=== PATIENT | male | born 1960 | race Caucasian/White ===

== ENCOUNTER 2024-01-10 11:31 | Outpatient (CLI) | payer BC, SELFPAY ==
--- NOTE | ~2024-01-10 | PE_ITS ---
EXAMINATION: PET_PETPSMAST_PT DATE: 01/10/2024 14:49 INDICATION: Malignant neoplasm of prostate. TECHNIQUE: 4.995 mCi of piflufolastat F-18 was administered intravenously. Low dose computed tomograp hy (CT) images were acquired from the base of the brain to the proximal thighs for attenuation correc tion and anatomic localization. Automated exposure control was employed. Dose-length product (DLP) wa s 1323 mGy-cm. Positron emission tomography (PET) images were acquired in the same distribution. COMPARISON: None FINDINGS: Head/neck: There are no pathologically enlarged lymph nodes. There is a mucous retention cyst in left maxillary sinus. Chest: The lungs demonstrate mild atelectasis. Calcified left hilar lymph nodes are consistent with o ld granulomatous disease. No pleural effusion. The heart size is normal. No pericardial effusion. Abdomen/pelvis/proximal thighs: The liver, gallbladder, spleen, pancreas, adrenal glands, and kidneys are normal. There is no urolithiasis. The prostate is moderately enlarged. There is increased activi ty in the prostate bilaterally with maximum SUV of 7.0. There are no dilated loops of bowel. The appe ndix is normal. There are no pathologically enlarged lymph nodes. There is no free intraperitoneal fl uid. There are bilateral inguinal hernias containing fat. There is no osseous metastatic disease. IMPRESSION: 1. Moderately enlarged prostate with increased activity bilaterally, consistent with primary malignan cy. No evidence of metastatic disease. Reviewed, dictated and finalized at location A. IMPRESSION: 1. Moderately enlarged prostate with increased activity bilaterally, consistent with primary malignancy. No evidence of metastatic disease.
== END 2024-01-10 11:32 | disposition home or self-care (01) ==
LOC: ANHIMG 11:32
PROVIDERS: Visit Provider Urology
DX: C61 Malignant neoplasm of prostate (principal); N40.0 Benign prostatic hyperplasia without lower urinary tract symptoms
CPT/HCPCS: 78815; A9596

== ENCOUNTER 2024-01-27 11:41 | Outpatient (CLI) | payer BC, SELFPAY ==
[2024-01-27 13:44] LABS: Basophils Percent Auto 0.1 % (0.2-1.2); Eosinophils Absolute Auto 0.2 K/mm3 (0-0.3); Eosinophils Percent Auto 3.3 % (0-4.4); Hematocrit 46.5 % (42.0-52.0); Hemoglobin 15.4 g/dL (14.0-18.0); Immature Granulocyte Absolute 0.04 K/mm3 (0.00-0.031); Immature Granulocyte Percent A 0.6 % (0-0.5); Lymphocytes Absolute Auto 1.57 K/mm3 (0.9-3.2); Lymphocytes Percent Auto 22.6 % (18.3-44.2); Mean Corpuscular HGB Conc 33.1 g/dl (32-36); Mean Corpuscular Hemoglobin 30.8 pg (26-34); Mean Platelet Volume 10.4 fl (7.4-10.4); Monocytes Absolute Auto 0.6 K/mm3 (0.1-0.6); Neutrophils Absolute Auto 4.6 K/mm3 (1.3-6.7); Neutrophils Percent Auto 65.4 % (45.5-73.1); Platelet Count Result 238 k/mm3 (150-375); Red Cell Distribution Width 12.1 % (11.5-14.5)
[2024-01-27 13:53] LABS: INR 1.1; Prothrombin Time 14.6 Seconds (11.1-14.7)
[2024-01-27 13:54] LABS: Partial Thromboplastin Time 35.3 Seconds (22.3-36.8)
[2024-01-27 13:59] LABS: Alanine Aminotransferase 25 U/L (6-50); Albumin Level 4.2 g/dL (3.5-5.1); Alkaline Phosphatase 88 U/L (38-126); Anion Gap 2 mmol/L (4-12); Aspartate Amino Transferase 26 U/L (17-59); Bilirubin,Total 0.5 mg/dL (0.2-1.3); Blood Urea Nitrogen 14 mg/dL (9-20); Calcium 8.9 mg/dL (8.4-10.2); Carbon Dioxide 30 mmol/L (22-30); Chloride 108 mmol/L (98-107); Estimated Glomerular Filt Rate > 60; Glucose 86 mg/dL (65-110); Sodium 140 mmol/L (137-145)
== END 2024-01-27 11:42 | disposition home or self-care (01) ==
PROVIDERS: PCP Family Medicine; Visit Provider Urology
DX: Z01.818 Encounter for other preprocedural examination (principal); C61 Malignant neoplasm of prostate
CPT/HCPCS: 36415; 80053; 85025; 85610; 85730; 86850; 86900; 86901; 87086

== ENCOUNTER 2024-02-04 00:11 | Day surgery (SDC) | payer BC, SELFPAY ==
--- NOTE | 2024-01-27 11:28 | PC.NURSE ---
PRE-OP INSTRUCTIONS PLEASE READ CAREFULLY Report to the Outpatient Waiting Room, entrance under the green pavilion located off [facility], at time _0600_ on date _02/04/24_. Planned Procedure Time: _0730_. PACK A SMALL OVERNIGHT BAG AND LEAVE IN THE CAR Time changes happen often and if your time is changed the preop area will call you the afternoon before. - You and your visitor will be asked to self-screen and do not enter if you have any COVID symptoms. - A mask is optional within the hospital at this time. -VISITING HOURS 8AM-8PM Patients may have clear liquids (water, carbonated beverages, clear teas, apple juice) until 3 hours prior to surgery (0430 AM) with a maximum of 20 ounces. - No food from midnight until time of surgery Take the following medications with a SIP of water the morning of surgery: _AMIODARONE, CARVEDILOL_ DO NOT STOP ANY OF YOUR OTHER PRESCRIPTION MEDICATIONS PRIOR TO SURGERY ?EXCEPT THE FOLLOWING Medications to discontinue - _ELIQUIS INSTRUCTED BY DR. MERRILL-2 DAYS PRIOR TO SURGERY (PER PATIENT), Date to take last dose 01/15/22_ Medications to discontinue ANESTHESIA - _VITAMINS/SUPPLEMENTS 3 DAYS PRIOR TO SURGERY, Date to take last dose 01/31/24_ Please no make-up, nail yakut, hairspray, perfume, deodorant, or body powder the day of surgery. No jewelry (including any body piercings) or valuables the day of surgery, leave them at home. Please take a shower or bath the night before, or the morning of, surgery with an antibacterial soap. Wear comfortable, loose fitting clothing. - Jewelry must be removed prior to entering the operating room. Rings and piercings that are not removed may be cut off. - The hospital will not accept responsibility for valuables. - Please leave all valuables, including medications, at home the day of surgery. If you are going home after surgery, a licensed delivery motorcycle driver must drive you home. - NO public transportation without another adult if you receive anesthesia. - We recommend that an adult stay with you for 24 hours following discharge. - We also recommend that you do not drive, make important decision, drink alcoholic beverages, or take any drugs that were not prescribed by your health care provider for at least 24 hours after your discharge time. Follow any additional instructions given to you from your surgeon. If you or anyone in your household have experienced Covid symptoms in the past week, please notify your surgeon or the nurse liaison at the phone number below for possible testing. Instructions given to _PATIENT & SIGNIFICANT OTHER (ADRIAN)_and asked if any additional questions and then verbalized understanding. Patient advised to call surgeon office or pre surgery nurse liaison [phone] if any additional questions.
[2024-01-27 12:09] VITALS: BP 116/76; PULSE 76; RESP 20; TEMP 36.4; O2SAT 98; BMI 32.8
[2024-02-04] VITALS (14 sets, daily range): BP systolic 93–141; BP diastolic 52–93; PULSE 65–81; RESP 14–18; TEMP 36.2–36.9; O2SAT 90–98
[2024-02-04] MEDS: LACTATED RINGERS 1,000 ML 30 ML IV CONT ×2 (07:00→12:56)
--- NOTE | 2024-02-04 07:16 | WPDHPUPDATE1 ---
History and Physical Update Update Date/Time: 02/04/24 07:16 History and Physical has been reviewed, including an updated exam of the patient. There are NO changes in the patient's condition. Risks, benefits, and alternatives have been discussed and questions answered. Patient agrees to proceed with procedure. Proceed with robotic assist nerve sparing prostatectomy with possible plnd
--- NOTE | 2024-02-04 07:17 | PM.IMHP ---
H&P: HPI History of Present Illness Date/Time: 02/04/24 07:17 Chief Complaint: prostate cancer Narrative: 63 yr old with adenocarcinoma of prostate. Here for robotic assist nerve sparing prostatectomy with possible plnd. Review of Systems Review of Systems: All systems reviewed & are unremarkable except as noted in HPI and below PMFSH Social History Social History Smoking status: Never smoker Second hand tobacco smoke exposure: No Alcohol intake: current Drinks per week: 6 Substance use: never Substance use type: does not use Living arrangements: other Additional living arrangements comments: LIVES WITH [facility] Spiritual [facility] concerns: No Meds Home Medications and Allergies Home Medications Medication Instructions Recorded Confirmed Type amiodarone 200 mg tablet 200 mg DAILY 01/27/24 01/27/24 History apixaban 5 mg tablet (Eliquis) 5 mg BID 01/27/24 01/27/24 History carvedilol 6.25 mg tablet 6.25 mg BID 01/27/24 01/27/24 History magnesium 200 mg tablet 400 mg PO DAILY 01/27/24 01/27/24 History multivitamin 1 tablet PO DAILY 01/27/24 01/27/24 History spironolactone 25 mg tablet 12.5 mg PO DAILY 01/27/24 01/27/24 History Allergies Allergy/AdvReac Type Severity Reaction Status Date / Time POWDER FROM LATEX GLOVES AdvReac Rash Uncoded 01/27/24 12:03 Exam Const: General: cooperative and comfortable Resp: Effort & Inspection: normal respiratory effort Cardio: Rate: regular rate Rhythm: regular rhythm GI: GI Palp: Yes Soft to palpation Assessment and Plan Assessment and plan (1) Adenocarcinoma of prostate: Code(s): C61 - Malignant neoplasm of prostate Status: Acute Assessment and Plan: Proceed with robotic assist nerve sparing prostatectomy with possible plnd. He is aware that may need to take left NVB due to appearance on MRI and possible involvement. Also aware of possibility of adjuvant xrt if margins are positive.
--- NOTE | 2024-02-04 07:18 | WPDANESEPPF ---
Anes - Initial Pre Proc Eval Procedure: Operation Date: 02/04/24 07:30 Proposed Procedures p Robotic Nerve Sparing Prostatectomy with Pelvic Lymph Node Dissection - Tacho Willis MD Date/Time: 02/04/24 07:18 Surgeon: Tacho Willis MD Pre Op Diagnosis: Prostate Ca Patient Data Age: 63 Gender: M Height: 1.93 m Weight: 122.2 kg Last Vital Signs Temp 97.6 F 01/27/24 12:09 Pulse 76 01/27/24 12:09 Resp 20 01/27/24 12:09 BP 116/76 01/27/24 12:09 Pulse Ox 98 01/27/24 12:09 O2 Del Method Room Air 01/27/24 12:09 Allergies Allergy/AdvReac Type Severity Reaction Status Date / Time POWDER FROM LATEX GLOVES AdvReac Rash Uncoded 01/27/24 12:03 Home Medications Medication Instructions Recorded Confirmed Type amiodarone 200 mg tablet 200 mg DAILY 01/27/24 01/27/24 History apixaban 5 mg tablet (Eliquis) 5 mg BID 01/27/24 01/27/24 History carvedilol 6.25 mg tablet 6.25 mg BID 01/27/24 01/27/24 History magnesium 200 mg tablet 400 mg PO DAILY 01/27/24 01/27/24 History multivitamin 1 tablet PO DAILY 01/27/24 01/27/24 History spironolactone 25 mg tablet 12.5 mg PO DAILY 01/27/24 01/27/24 History Patient hx anesthesia problems: none Family hx anesthesia problems: none Results Review: All pre-operative results and documents have been reviewed as part of the pre-operative evaluation. [facility] Social History Social History Smoking status: Never smoker Second hand tobacco smoke exposure: No Alcohol intake: current Drinks per week: 6 Substance use: never Substance use type: does not use Living arrangements: other Additional living arrangements comments: LIVES WITH [facility] OTHER [facility] Spiritual care concerns: No Anes - Eval Final PreProcedure Day of Procedure 02/04/24 07:18 Patient weight: obese Heart: regular rate and rhythm Lungs: clear to auscultation Airway: Mallampati scale class II Neurological: alert and oriented Last oral intake: >/= 8 hours ASA classification: III Emergent: no Anesthetic plan: proceed Anesthesia type and monitoring: general ETT and standard monitoring Results Review: All pre-operative results and documents have been reviewed as part of the pre-operative evaluation. ECHO reviewed 2021 LVEF 50%. Stress test 2020 w no ischemia. Pt has KERRIE on CPAP. Informed Consent: The patient's anesthetic plan and its attendant risks and benefits were discussed with the patient/family/POA. Questions were solicited and answers provided to the satisfaction of the patient/family/POA.
[2024-02-04] MEDS: ceFAZolin 3 GM/D5W 100 ML 100 ML IVPB (07:50)
[2024-02-04] MEDS: BUPivacaine HCL 0.5% 10 ML AMP 30 ML INFILTRATE (08:28)
[2024-02-04] MEDS: ceFAZolin SODIUM 1 GM VIAL IV PUSH (11:24)
--- NOTE | 2024-02-04 12:30 | W.PM.PROC2 ---
Procedure Note - Detailed Date of Procedure 02/04/24 Pre-op Diagnosis Prostate Ca Post-op Diagnosis Same Procedure Performed Robotic assisted nerve-sparing prostatectomy with left pelvic lymphadenectomy Surgeon Tacho Willis MD Anesthesia General Description of Procedure Patient was taken to the operative suite correctly identified. Once anesthesia was obtained was placed in low-lying dorsal lithotomy position prepped and draped usual sterile fashion. Eighteen Latvian Tee with 20 cc was placed in the bladder. Supraumbilical incision was made carried down to the rectus fascia. Veress needle was inserted and the abdomen insufflated to 15 mmHg pressure. Camera port was placed under direct vision. Patient had some adhesions along the left colon area which were taken down. Posterior approach was then performed. Seminal vesicles were dissected out in their entirety vas were transected. Plane between the prostate and rectum was developed. Bladder was then taken down the space of Retzius was developed bilaterally. Puboprostatic were taken down. Dorsal venous complex was isolated and suture ligated using an 0 Vicryl in secured to the pubic bone. Anterior bladder neck was then opened. Posterior bladder neck was also incised. It was somewhat of a larger bladder neck and thus it was reconstructed using 3-0 Vicryl in interrupted fashion at the 3 and 6:00 a.m. positions. Posterior fascia was incised to expose the seminal vesicles. A wider resection was made along the left neurovascular bundle. It was noted that there was an incision into the prostate. Again a wider resection was done on the left side. The right side pedicles were also taken and clipped. Nerve-sparing was performed on the right side. Dorsal venous complex was transected as was the urethra. Prostate was placed in an Endo-Catch bag. Left pelvic lymph node dissection was then performed using boundaries of Jasen's ligament, bifurcation of the vessels, obturator nerve, and external iliac vein. Clips were placed proximally and distally on the packets. Specimen was also placed in an Endo-Catch bag. A Kirt stitch was then performed. Bladder neck was reanastomosed to the urethral stump using the V lock suture in a running fashion. There was good approximation of mucosa. Eighteen Latvian Tee was placed with 10 cc in the balloon. It was filled with approximately 100 cc without any evidence of extravasation. ISAURA drain was placed in the 4th working arm port. This was secured. At this point the robot was undocked. Specimen was brought out through the midline incision. Rectus fascia closed using 0 Vicryl. Subcuticular stitches were then placed. Patient tolerated procedure well without any complications was taken recovery stable condition. This completes dictation. Please send a copy of op note to my office. Estimated Blood Loss 100 Drains Yes Packing No Pathology Yes Complications No immediate complications Condition Stable Disposition PACU
[2024-02-04] MEDS: fentaNYL CITRATE INJ (*CRX) 100 MCG/2 ML VIAL 25 MCG IV PUSH ×4 (13:09→13:24)
[2024-02-04] MEDS: HYOSCYAMINE SULFATE 0.125 MG TABLET SUBLINGUAL (13:40)
[2024-02-04] MEDS: LACTATED RINGERS 1,000 ML 125 ML IV CONT (14:47)
[2024-02-04] MEDS: SODIUM CHLORIDE 0.9% IV 500 ML 999 ML IV CONT (15:33)
[2024-02-04 16:01] LABS: Hematocrit 43.5 % (42.0-52.0); Hemoglobin 14.3 g/dL (14.0-18.0)
[2024-02-04] MEDS: MORPHINE SULFATE (*CRX) 2 MG/ML INJ IV PUSH (16:33)
--- NOTE | 2024-02-04 16:56 | ADMGEN ---
This patient, Sanjiv Torres, was admitted to [facility] Surg Room 311-01. Patient/family oriented to hospital policies and general routines including ID bracelet, bed and alarms, visiting hours, pain management, procedures, bathroom and other care routines, personal items, smoking policy, room service/diet, and visiting hours. Information on how to activate the Rapid Response Team has been discussed. Patient/Family are encouraged to report perceived risks to care and to ask questions if they do not understand what they are told or what they should do.
[2024-02-04] MEDS: HYDROcodone/acetaminophen (*CRX) 5-325 MG TABLET 2 TAB PO ×2 (17:33→23:38)
--- NOTE | 2024-02-04 17:47 | WPDCN ---
Assessment and Plan Assessment and plan (1) Adenocarcinoma of prostate: Onset Date: 12/2023 Code(s): C61 - Malignant neoplasm of prostate Status: Acute Assessment and Plan: Postoperative day 0 status post robotic assisted nerve-sparing prostatectomy with left pelvic lymphadenectomy. Currently having gross hematuria but catheter is patent and draining. H and H is stable. Start Colace and add MiraLax p.r.n. due to concerns for constipation with opiates. Wound care, pain control, and DVT prophylaxis deferred to Dr. Willis. (2) Hypertension: Code(s): I10 - Essential (primary) hypertension Status: Acute Assessment and Plan: Blood pressure was running at the lower end of normal earlier but has improved. Check blood pressure in both arms once he is able to stay in a seated position for 5 minutes to ensure there is no significant discrepancy in pressures between the arms. Hold spironolactone and carvedilol with parameters and monitor closely. (3) Paroxysmal atrial fibrillation: Code(s): I48.0 - Paroxysmal atrial fibrillation Status: Acute Assessment and Plan: Currently sounds to be in a sinus rhythm. Continue amiodarone 200 mg daily. (4) Chronic anticoagulation: Code(s): Z79.01 - FPC (current) use of anticoagulants Status: Acute Assessment and Plan: Resume apixaban when okay with Dr. Willis. (5) Obstructive sleep apnea on CPAP: Code(s): G47.33 - Obstructive sleep apnea (adult) (pediatric) Status: Acute Assessment and Plan: CPAP will be provided for the patient to use while hospitalized. Plan Thank you for allowing us to participate in this patient's care. Please do not hesitate to contact us with any questions. HPI Data of Consult Date/Time: 02/04/24 19:00 Requesting Physician: Tacho Willis MD Consult Narrative Reason for consult: Medical management. Narrative: This is a pleasant 63-year-old male with hypertension, paroxysmal atrial fibrillation on chronic anticoagulation, and obstructive sleep apnea whom the hospitalist service has been consulted for help managing his medical conditions postoperatively. He was recently diagnosed with prostate cancer and had a robotic assisted nerve sparing prostatectomy with left pelvic lymphadenectomy per Dr. Willis today. His surgery was performed under general anesthesia with no immediate complications documented an estimated blood loss of 100 mL. He reports quite a bit of pain in his low back since surgery however it is more manageable now that he is on a scheduled oral pain regimen. Nurse reports gross blood in the Tee catheter however it is patent and draining. The patient had concerns early this afternoon as his blood pressure was 93/52 however when it was checked on the other arm approximately 15 minutes later, it was reportedly 30 points higher. This was concerning to him however it is noted that he was lying on his side at the time blood pressures were taken. He also voices some concern about developing constipation due to the pain medications as he had issues with that after his replacement. He denies syncope, near syncope, vertigo, fever, chills, sweats, paresthesias, and vomiting. Review of Systems Review of Systems: 12 systems were reviewed and are negative except for as per HPI. [facility] Past Medical History Medical History Adenocarcinoma of prostate (12/2023) Chronic anticoagulation Hypertension Kidney stones Obstructive sleep apnea on CPAP Paroxysmal atrial fibrillation Surgical History Surgical History History of cardioversion (2016) History of partial knee replacement Left. History of prostatectomy (02/04/24) Robotic assisted nerve-sparing prostatectomy with left pelvic lymphadenectomy for prostate cancer per Dr. Churchill
[2024-02-04] MEDS: DOCUSATE SODIUM 100 MG CAPSULE PO (21:16)
[2024-02-05] VITALS: BP 111/54; PULSE 79; RESP 13; TEMP 36.4; O2SAT 96
[2024-02-05] MEDS: LACTATED RINGERS 1,000 ML 125 ML IV CONT ×2 (01:26→09:26)
[2024-02-05 04:00] VITALS: BP 101/50; PULSE 85; RESP 13; TEMP 36.3; O2SAT 98
[2024-02-05 05:21] LABS: Hematocrit 36.5 % (42.0-52.0); Mean Corpuscular HGB Conc 32.9 g/dl (32-36); Mean Corpuscular Hemoglobin 30.6 pg (26-34); Mean Corpuscular Volume 93.1 fl (80-100); Mean Platelet Volume 10.9 fl (7.4-10.4); Platelet Count Result 215 k/mm3 (150-375); Red Blood Count 3.92 M/mm3 (4.6-6.20); Red Cell Distribution Width 12.2 % (11.5-14.5); White Blood Count 10.3 K/mm3 (4.5-10.0)
[2024-02-05 05:40] LABS: Anion Gap 5 mmol/L (4-12); Blood Urea Nitrogen 14 mg/dL (9-20); Calcium 8.1 mg/dL (8.4-10.2); Carbon Dioxide 27 mmol/L (22-30); Chloride 105 mmol/L (98-107); Estimated CRCL calculation 86 ml/min; Estimated Glomerular Filt Rate > 60; Glucose 112 mg/dL (65-110); Magnesium 1.8 mg/dL (1.6-2.3); Potassium 4.4 mmol/L (3.4-5.0); Sodium 137 mmol/L (137-145)
[2024-02-05] MEDS: HYDROcodone/acetaminophen (*CRX) 5-325 MG TABLET 2 TAB PO ×2 (06:25→13:28)
--- NOTE | 2024-02-05 07:49 | WPDUROPN2 ---
Progress Note: A&P Assessment and Plan (1) Adenocarcinoma of prostate: Onset Date: 12/2023 Code(s): C61 - Malignant neoplasm of prostate Status: Acute Assessment and Plan: Postoperative day 1. From robotic prostatectomy. Doing well overall. Increase activity and ambulation. Will re-evaluate later this afternoon regarding ISAURA possible discharge. Then Vinnie cleat stable at this time. Will hold off on anticoagulation for another day or 2. Appreciate hospitalist input and recommendation Subjective Subjective Date/Time Seen: 02/05/24 07:49 Post Op day: 1 (This nerve-sparing prostatectomy with left pelvic lymph node dissection) Principal diagnosis: Adenocarcinoma prostate Interval history: Doing better this morning. No major complaints at this time. Appreciate hospitalist input Review of Systems Review of Systems: All systems reviewed & are unremarkable except as noted in HPI and below Exam Const: General: cooperative and comfortable Resp: Effort & Inspection: normal respiratory effort Cardio: Rate: regular rate Rhythm: regular rhythm GI: Inspection: distended Objective Data Vital Signs Vital Signs: Vital Signs - 24 hr 02/04/24 12:56 02/04/24 13:25 02/04/24 13:30 Temperature 36.5 C Pulse Rate 71 69 Respiratory Rate 18 18 Blood Pressure 131/91 H 140/93 H Pulse Oximetry 93 98 Oxygen Delivery Simple Face Mask Simple Face Mask Room Air Oxygen Flow Rate 6 6 02/04/24 13:40 02/04/24 13:45 02/04/24 14:00 Temperature 36.3 C L Pulse Rate 70 69 69 Respiratory Rate 16 14 14 Blood Pressure 124/72 133/76 141/82 H Pulse Oximetry 92 94 93 Oxygen Delivery Room Air Room Air Room Air Oxygen Flow Rate 02/04/24 14:15 02/04/24 13:10 02/04/24 14:50 Temperature 36.7 C Pulse Rate 69 65 73 Respiratory Rate 14 18 18 Blood Pressure 140/80 136/88 102/71 Pulse Oximetry 93 97 95 Oxygen Delivery Room Air Simple Face Mask Oxygen Flow Rate 6 02/04/24 15:05 02/04/24 15:35 02/04/24 16:10 Temperature 36.6 C 36.6 C Pulse Rate 71 75 78 Respiratory Rate 18 18 18 Blood Pressure 93/52 L 136/80 130/71 Pulse Oximetry 90 90 92 Oxygen Delivery Oxygen Flow Rate 02/04/24 20:00 02/04/24 20:10 02/05/24 00:00 Temperature 36.9 C 36.9 C 36.4 C Pulse Rate 81 81 79 Respiratory Rate 14 14 13 Blood Pressure 109/65 109/65 111/54 L Pulse Oximetry 95 95 96 Oxygen Delivery Oxygen Flow Rate 02/05/24 04:00 Temperature 36.3 C L Pulse Rate 85 Respiratory Rate 13 Blood Pressure 101/50 L Pulse Oximetry 98 Oxygen Delivery Oxygen Flow Rate Intake/Output Intake/Output: Intake & Output 02/02/24 02/03/24 02/04/24 02/05/24 23:59 23:59 23:59 23:59 Intake Total 1500 1000 Output Total 265 2385 Balance 1235 -1385 Meds/Results Medications: Active Medications Generic Name Dose Route Start Last Admin Trade Name Freq PRN Reason Stop Dose Admin Acetaminophen 650 mg 02/04/24 17:55 Acetaminophen 325 Mg Tablet PO Q6H PRN Mild Pain (1-3) or Fever Hydrocodone Bitart/Acetaminophen 1 tab 02/04/24 14:25 Hydrocodone/Acetaminophen (*Crx) 5-325 Mg Tablet PO Q6H PRN Pain Rated 1-3 Hydrocodone Bitart/Acetaminophen 2 tab 02/04/24 14:25 02/05/24 06:25 Hydrocodone/Acetaminophen (*Crx) 5-325 Mg Tablet PO 2 tab Q6H PRN Administration Pain Rated 4-6 Amiodarone HCl 200 mg 02/05/24 09:00 Amiodarone Hcl 200 Mg Tablet PO DAILY CAN Carvedilol 6.25 mg 02/04/24 17:00 02/04/24 16:23 Carvedilol 6.25 Mg Tablet PO Not Given BID CAN Docusate Sodium 100 mg 02/04/24 21:00 02/04/24 21:16 Docusate Sodium 100 Mg Capsule PO 100 mg Q12HR CAN Administration Hyoscyamine 0.125 mg 02/04/24 13:35 02/04/24 13:40 Hyoscyamine Sulfate 0.125 Mg Tablet SUBLINGUAL 0.125 mg Q4H PRN Administration Bladder Spasm Lactated Ringer's 1,000 mls @ 125 mls/hr 02/04/24 14:25 02/05/24 01:26 Lr - Lactated Ri
[2024-02-05 08:00] VITALS: BP 108/75; PULSE 72; RESP 18; TEMP 36.3; O2SAT 95
[2024-02-05 09:23] VITALS: PULSE 95
[2024-02-05] MEDS: levoFLOXacin 500 MG TABLET PO (09:23)
[2024-02-05] MEDS: polyethylene glycoL 3350 17 GM POWD.PACK PO (09:23)
[2024-02-05] MEDS: AMIODARONE HCL 200 MG TABLET PO (09:23)
[2024-02-05 09:24] VITALS: PULSE 95
[2024-02-05] MEDS: DOCUSATE SODIUM 100 MG CAPSULE PO (09:24)
[2024-02-05 12:00] VITALS: BP 146/85; PULSE 88; RESP 18; TEMP 36.3; O2SAT 95
--- NOTE | 2024-02-05 12:58 | PM.IMPN ---
Progress Note: A&P Assessment and Plan (1) Hypertension: Code(s): I10 - Essential (primary) hypertension Status: Acute (2) Obstructive sleep apnea on CPAP: Code(s): G47.33 - Obstructive sleep apnea (adult) (pediatric) Status: Acute (3) Chronic anticoagulation: Code(s): Z79.01 - detention (current) use of anticoagulants Status: Acute (4) Adenocarcinoma of prostate: Onset Date: 12/2023 Code(s): C61 - Malignant neoplasm of prostate Status: Acute (5) Paroxysmal atrial fibrillation: Code(s): I48.0 - Paroxysmal atrial fibrillation Status: Acute Plan Patient is doing well postop. Tee bag intact, urine is clear. Pain is well controlled. Continue p.r.n. laxatives, has not had BM yet. SCDs and ambulate in [place] 3 times daily. Eliquis currently on hold. Okay if urology wants to restart tomorrow. Leukocytosis is mild. Check procalcitonin and trend white count. Patient has no symptomatology to indicate infection otherwise. Full code. Subjective Date/time seen: 02/05/24 12:58 Interval history: No acute overnight events. Reports pain is well controlled. Denies hematuria. Tolerated lunch, not had BM since surgery. Review of Systems Review of Systems: All systems reviewed & are unremarkable except as noted in HPI and below (Subjective) Exam Const: General: comfortable and no acute distress Other: A&O x3, obese. Neck: Neck: supple Resp: Effort & Inspection: normal respiratory effort Auscultation: clear to auscultation bilaterally Cardio: Rate: regular rate Rhythm: regular rhythm GI: GI Palp: Yes Soft to palpation and No Tenderness to palpation present (GI) Urinary Catheter: Urinary Catheter: patent and draining and urine clear Extrem: General: no edema Objective Data Vital Signs Vital Signs: Vital Signs - 24 hr 02/04/24 13:25 02/04/24 13:30 02/04/24 13:40 Temperature Pulse Rate 69 70 Respiratory Rate 18 16 Blood Pressure 140/93 H 124/72 Pulse Oximetry 98 92 Oxygen Delivery Simple Face Mask Room Air Room Air Oxygen Flow Rate 6 02/04/24 13:45 02/04/24 14:00 02/04/24 14:15 Temperature 97.3 F L Pulse Rate 69 69 69 Respiratory Rate 14 14 14 Blood Pressure 133/76 141/82 H 140/80 Pulse Oximetry 94 93 93 Oxygen Delivery Room Air Room Air Room Air Oxygen Flow Rate 02/04/24 13:10 02/04/24 14:50 02/04/24 15:05 Temperature 98.1 F Pulse Rate 65 73 71 Respiratory Rate 18 18 18 Blood Pressure 136/88 102/71 93/52 L Pulse Oximetry 97 95 90 Oxygen Delivery Simple Face Mask Oxygen Flow Rate 6 02/04/24 15:35 02/04/24 16:10 02/04/24 20:00 Temperature 97.8 F 97.9 F 98.5 F Pulse Rate 75 78 81 Respiratory Rate 18 18 14 Blood Pressure 136/80 130/71 109/65 Pulse Oximetry 90 92 95 Oxygen Delivery Oxygen Flow Rate 02/04/24 20:10 02/05/24 00:00 02/05/24 04:00 Temperature 98.5 F 97.6 F 97.4 F L Pulse Rate 81 79 85 Respiratory Rate 14 13 13 Blood Pressure 109/65 111/54 L 101/50 L Pulse Oximetry 95 96 98 Oxygen Delivery Oxygen Flow Rate 02/05/24 08:00 02/05/24 09:23 02/05/24 09:24 Temperature 97.4 F L Pulse Rate 72 95 95 Respiratory Rate 18 Blood Pressure 108/75 Pulse Oximetry 95 Oxygen Delivery Oxygen Flow Rate 02/05/24 12:00 Temperature 97.3 F L Pulse Rate 88 Respiratory Rate 18 Blood Pressure 146/85 H Pulse Oximetry 95 Oxygen Delivery Oxygen Flow Rate Intake/Output Intake/Output: Intake & Output 02/02/24 02/03/24 02/04/24 02/05/24 23:59 23:59 23:59 23:59 Intake Total 1500 2975 Output Total 265 2915 Balance 1235 60 Meds/Results Medications: Active Medications Generic Name Dose Route Start Last Admin Trade Name Freq PRN Reason Stop Dose Admin Acetaminophen 650 mg 02/04/24 17:55 Acetaminophen 325 Mg Tablet PO Q6H PRN Mild Pain (1-3) or Fever Hydrocodone Bitart/Acetaminophen 1 tab 02/04/24 14:25
--- NOTE | 2024-02-05 14:47 | WPDANESPN ---
Anes - Prog Note Post-Op Date/Time: 02/05/24 14:47 Cardiovascular status: normal Respiratory status: normal Airway patency: baseline Mental status: baseline Post-Op hydration status: normal Vital Signs: Last Vital Signs Temp 36.3 C L 02/05/24 12:00 Pulse 88 02/05/24 12:00 Resp 18 02/05/24 12:00 BP 146/85 H 02/05/24 12:00 Pulse Ox 95 02/05/24 12:00 O2 Del Method Room Air 02/04/24 14:15 O2 Flow Rate 6 02/04/24 13:25 Pain Score (VAS): 09/21 I/O: Intake & Output 02/04/24 02/05/24 02/05/24 23:59 07:59 15:59 Intake Total 1000 1000 1975 Output Total 135 2385 530 Balance 865 -1385 1445 Laboratory Tests 02/05/24 04:14 02/05/24 04:14 02/04/24 02/05/24 15:48 04:14 WBC 10.3 H RBC 3.92 L Hgb 14.3 12.0 L Hct 43.5 36.5 L MCV 93.1 MCH 30.6 MCHC 32.9 RDW 12.2 Plt Count 215 MPV 10.9 H Sodium 137 Potassium 4.4 Chloride 105 Carbon Dioxide 27 Anion Gap 5 BUN 14 Creatinine 1.10 Estim Creat Clear Calc 86 Estimated GFR > 60 Glucose 112 H Calcium 8.1 L Magnesium 1.8 Post-procedural complaints: none Patient Feedback: Patient satisfied with anesthetic care.
--- NOTE | 2024-02-05 15:04 | PM.DS ---
DS: Admitting Diagnosis Discharge Date 02/05/2024 Admitting Diagnosis 02/04/2024 DS: Discharge Diagnosis Discharge Diagnosis (1) Adenocarcinoma of prostate: Onset Date: 12/2023 Code(s): C61 - Malignant neoplasm of prostate Status: Acute DS: Summary Hospital Course Hospital Course: Surgery. Sanjiv ramirez is a 63-year-old male with history of prostate cancer who presented to [facility] on 02/04/2024 to undergo scheduled surgery. He underwent robotic assisted nerve-sparing prostatectomy with left pelvic lymphadenectomy on 02/04/[address] Willis. He tolerated surgery well and pain was well controlled. He had some leakage from the site of his GP drain but this resolved promptly with dressing change. Given he still had some output from his ISAURA drain, opted to leave the drain on discharge and will arrange follow-up on 02/07/2024 for ISAURA drain removal. He will discharge home with Tee catheter. Catheter care education was provided. Will follow-up as an outpatient in 1 week for Tee removal. He and his family felt comfortable with plans for discharge home. He was ambulating without difficulty and tolerating his diet. We discussed worrisome signs and symptoms for which to return. Status at Discharge Functional status at discharge: independent ambulation Time Spent with Patient Time attestation: Total time spent providing and/or coordinating discharge services: Time spent: Greater than 30 minutes Exam Narrative: General: Awake, alert, comfortable, no acute distress HEENT: Normocephalic, atraumatic, sclerae anicteric Respiratory: Normal respiratory effort, no accessory muscle use Abdomen: Nondistended, soft, nontender : Tee catheter draining clear yellow urine, ISAURA drain with serosanguineous output Skin: Normal coloration, warm and dry Neurologic: No focal neuro deficits noted Psychiatric: Appropriate mood and affect, judgment and insight intact DS: Data Data Completed and Pending Completed studies during hospitalization: Pending at discharge 02/04/24 10:41 Surgical [PTH] Routine Surgical [PTH] Routine Surgical [PTH] Routine Labs on day of discharge: Labs from last 24 hours 02/05/24 02/04/24 04:14 15:48 WBC 10.3 H RBC 3.92 L Hgb 12.0 L 14.3 Hct 36.5 L 43.5 MCV 93.1 MCH 30.6 MCHC 32.9 RDW 12.2 Plt Count 215 MPV 10.9 H Sodium 137 Potassium 4.4 Chloride 105 Carbon Dioxide 27 Anion Gap 5 BUN 14 Creatinine 1.10 Estim Creat Clear Calc 86 Estimated GFR > 60 Glucose 112 H Calcium 8.1 L Magnesium 1.8 Discharge Plan Discharge Patient Disposition: Home, Self-Care Discharge Instructions: Resume taking Eliquis on Saturday02/07/2024 Will have follow-up appointment 02/07/2024 to have ISAURA drain removed Continue with Tee catheter Call the office or seek care if you have any issues with your drains Patient Instructions: Safe Use of Anticoagulants (GEN) Stand Alone Forms: Work/School Release IP Follow-up/Referrals: Shelby Bocanegra PA-C [Physician Front Sight Attacher] - 02/07/24 9:45 am Discharge Medications: New hydrocodone-acetaminophen 5-325 mg Tablet 1 tablet PO Q6H PRN (Reason: pain (scale score 4-6)) Qty: 20 0RF docusate sodium 100 mg Capsule 100 mg PO Q12HR Qty: 20 0RF hyoscyamine sulfate [Anaspaz] 0.125 mg Tablet,Disintegrating 0.125 mg sublingual Q6H PRN (Reason: Bladder Spasm) Qty: 20 0RF levofloxacin 500 mg Tablet 500 mg PO DAILY Qty: 7 0RF Continued multivitamin Tablet 1 tablet PO DAILY carvedilol 6.25 mg tablet 6.25 mg BID amiodarone 200 mg tablet 200 mg DAILY spironolactone 25 mg Tablet 12.5 mg PO DAILY magnesium 200 mg Tablet 400 mg PO DAILY Held Eliquis 5 mg tablet 5 mg BID Hold Instructions: Resume on 02/07/24.
== END 2024-02-05 16:35 | disposition home or self-care (01) ==
LOC: ANHSURGERY 05:54 → ANH3MEDSUR 14:26
PROVIDERS: Physician Assistant; PCP Family Medicine; Visit Provider Urology
PROC: 0VT04ZZ Resection of Prostate, Percutaneous Endoscopic Approach (ICD-10-PCS; CPT 55867; principal; 2024-02-04 07:30)
DX: C61 Malignant neoplasm of prostate (principal); I10 Essential (primary) hypertension; I48.0 Paroxysmal atrial fibrillation; Z79.01 Long term (current) use of anticoagulants; G47.33 Obstructive sleep apnea (adult) (pediatric); Z99.89 Dependence on other enabling machines and devices
CPT/HCPCS: 55866; 38571; S2900; 36415; 80048; 83735; 85014; 85018; 85027; 88304; 88305; 88309; A9270; J0690; J1100; J2250; J2270; J2405; J2704; J3010; J7030; J7040; J7120

== ENCOUNTER 2024-02-14 11:38 | Outpatient (CLI) | payer BC, SELFPAY ==
--- NOTE | ~2024-02-14 | XR_ITS ---
EXAMINATION: XR cystogram DATE: 02/14/2024 12:22 INDICATION: Prostate cancer status post prostatectomy. TECHNIQUE: Water-soluble contrast was gravity-infused through the patient's Tee catheter. Multiple fluoroscopic images were obtained. Fluoroscopy exposure time was 0.1 minutes. The total number of yomaira ges was 5. COMPARISON: PET/CT 01/10/2024 FINDINGS: There is a Tee catheter in expected position. There is extraluminal leakage of contrast a t the prostatic urethra. IMPRESSION: 1. Extraluminal leakage of contrast at the prostatic urethra. Reviewed, dictated and finalized at location A.
== END 2024-02-14 11:39 | disposition home or self-care (01) ==
LOC: ANHIMG 11:43
PROVIDERS: PCP Family Medicine; Visit Provider Urology
DX: C61 Malignant neoplasm of prostate (principal)
CPT/HCPCS: 51600; 74430; Q9967

== ENCOUNTER 2024-02-21 10:20 | Outpatient (CLI) | payer BC, SELFPAY ==
--- NOTE | ~2024-02-21 | XR_ITS ---
EXAMINATION: CYSTOGRAM DATE: 02/21/2024 11:09 INDICATION: Follow-up bladder leak post recent prostate surgery TECHNIQUE: Initial ramp service agent radiograph of the pelvis was performed. There was retrograde administration of Omnipaque 350 mixed with saline contrast into patient's existing Tee catheter. 10 fluoroscopic images of the pelvis were obtained. Fluoroscopy exposure time was 0.4 minutes. Total DAP was 12.756 Gycm^2 FINDINGS: Scuba Diving Instructor radiograph demonstrates the Tee catheter remaining in expected position. Again seen is rapid extravasation of contrast extending to both the left and the right from the region of the prostatic u rethra. IMPRESSION: 1. Persistent extraluminal leakage of contrast at the prostatic urethra. Reviewed, dictated and finalized at location A.
== END 2024-02-21 10:21 | disposition home or self-care (01) ==
PROVIDERS: PCP Family Medicine; Visit Provider Physician Assistant
DX: Z09 Encounter for follow-up examination after completed treatment for conditions other than malignant neoplasm (principal); Z98.890 Other specified postprocedural states
CPT/HCPCS: 51600; 74430; Q9967

== ENCOUNTER 2024-03-06 09:03 | Outpatient (CLI) | payer BC, SELFPAY ==
--- NOTE | ~2024-03-06 | XR_ITS ---
EXAMINATION: CYSTOGRAM DATE: 03/06/2024 09:31 INDICATION: Bladder leak post prostatectomy for prostate cancer TECHNIQUE: Initial supervisor shipfitters radiograph of the pelvis was performed. There was retrograde administration of Omnipaque 350 mixed with saline contrast into patient's existing Tee catheter. Fluoroscopic yomaira ges of the pelvis were obtained. A post-void image was also performed. Fluoroscopy exposure time was 0.8 minutes. Total DAP was 31.085 mGycm^2. FINDINGS: Again seen is a bladder leak with contrast extending laterally from both the left and the right sides of the prostatectomy bed. Both the amount of contrast accumulation as well as the speed head which i s developed or significantly decreased since the prior study consistent with interval healing. IMPRESSION: 1. Persistent bladder leak at the prostatectomy bed with significant decrease in both the amount and speed of accumulation of extravasated contrast. Reviewed, dictated and finalized at location A.
== END 2024-03-06 09:04 | disposition home or self-care (01) ==
LOC: ANHIMG 09:05
PROVIDERS: PCP Family Medicine; Visit Provider Physician Assistant
DX: C61 Malignant neoplasm of prostate (principal); N32.9 Bladder disorder, unspecified
CPT/HCPCS: 51600; 74430; Q9967